=== PATIENT | female | born 1960 | race Two or more races ===

== ENCOUNTER 2022-07-14 08:59 | Outpatient (CLI) | payer OTHER ==
[2022-07-14] MEDS ORDERED: KETO10TA2 PO (11:37)
[2022-07-14] MEDS ORDERED: HORIZANT300 MG PO (11:37)
[2022-07-14] MEDS ORDERED: PROTONIX40 MG PO (11:38)
[2022-07-14] MEDS ORDERED: PEPCID AC20 MG PO (11:39)
[2022-07-14] MEDS ORDERED: NORFLEX100MG PO (11:39)
== END 2022-07-14 09:15 | disposition home or self-care (01) ==
LOC: MRI 08:59
DX: M54.9 Dorsalgia, unspecified (principal)
CPT/HCPCS: 72148

== ENCOUNTER 2022-07-14 11:20 | Emergency (ER) | payer OTHER ==
[~2022-07-14] VITALS: Ht 154.9 cm; Wt 60.3 kg
[2022-07-14] MEDS ORDERED: HORIZANT300 MG PO (11:37)
[2022-07-14] MEDS ORDERED: KETO10TA2 PO (11:37)
[2022-07-14] MEDS ORDERED: PROTONIX40 MG PO (11:38)
[2022-07-14] MEDS ORDERED: PEPCID AC20 MG PO (11:39)
[2022-07-14] MEDS ORDERED: NORFLEX100MG PO (11:39)
== END 2022-07-14 14:10 | disposition home or self-care (01) ==
LOC: ER 11:20
DX: M54.50 Low back pain, unspecified (principal)

== ENCOUNTER 2025-09-11 10:48 | Outpatient (CLI) | payer OTHER ==
[~2025-09-11 10:48] MED LIST: HORIZANT300 MG PO; KETO10TA2 PO; NORFLEX100MG PO; PEPCID AC20 MG PO; PROTONIX40 MG PO
== END 2025-09-11 10:53 | disposition home or self-care (01) ==
LOC: RAD 10:48
PROVIDERS: ATTEND Orthopaedic Surgery
DX: M54.6 Pain in thoracic spine (principal); M54.50 Low back pain, unspecified; M25.562 Pain in left knee